=== PATIENT | female | born 1985 | race Caucasian/White ===

== ENCOUNTER 2018-04-21 11:29 | Inpatient (IN) ==
[2018-04-21] MEDS ORDERED: Aluminum/Magnesium/Simethacone Susp 30 ML UDC PO PRN (13:03)
[2018-04-21] MEDS ORDERED: [UNRECOGNIZED DRUG - REMARK] T-DERMAL SCH ×2 (13:15→14:00)
[2018-04-21] MEDS ORDERED: Estradiol 0.1 MG/24 HR Patch T-DERMAL SCH (14:00)
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
[2018-04-21] MEDS: Melatonin 5 MG Tablet PO PRN (21:29)
[2018-04-22 07:29] LABS: Calcium 9.1 mg/dL (8.5-10.1); Carbon Dioxide 26.2 meq/L (21.0-32.0); Potassium 3.7 meq/L (3.5-5.1)
[2018-04-22 07:39] LABS: Chol/HDL Ratio 3.31 Ratio; HDL Cholesterol 56.1 mg/dL (40.0-60.0); Thyroid Stimulating Hormone 1.13 uIU/mL (0.358-3.740)
[2018-04-22] MEDS: Acetaminophen 325 MG Tablet PO PRN ×2 (09:37→20:00)
[2018-04-22 13:09] LABS: Hemoglobin A1c 4.8 % (4.3-6.0)
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
--- NOTE | 2018-04-22 18:15 | XR ---
EXAM DATE: 04/22/2018 6:13 PM EST AGE/SEX: 32 years / Female INDICATIONS: Bilateral lower abdomen pain today. Hematuria today. Constipation for 4 days. CLINICAL DATA: This is the patient's initial encounter. Patient reports that signs and symptoms have been present for 1 day and indicates a pain score of 7/10. MEDICAL/SURGICAL HISTORY: . Kidney stones. Hysterectomy. COMPARISON: No prior exams available for comparison. FINDINGS: The abdominal bowel gas pattern is normal. No abnormal masses, calcifications, or organomegaly is s een. The osseous structures are unremarkable. CONCLUSION: Negative examination. Electronically signed by: Juan David Longoria MD 04/22/2018 6:14 PM EST
[2018-04-22] MEDS: Sertraline 50 MG Tablet PO SCH (20:04)
[2018-04-22] MEDS ORDERED: traZODone 50 MG Tablet PO SCH (21:00)
[2018-04-23] MEDS: Melatonin 5 MG Tablet PO PRN ×2 (00:23→21:56)
[2018-04-23] MEDS: Acetaminophen 325 MG Tablet PO PRN (00:29)
[2018-04-23] MEDS: Sertraline 50 MG Tablet PO SCH (08:14)
[2018-04-23 10:27] LABS: Baso % (Auto) 0.5 % (0.0-2.0); Eos # (Auto) 0.1 th/mm3 (0.0-0.4); Eos % (Auto) 1.6 % (0.0-4.0); Hematocrit 40.1 % (35.0-46.0); Hemoglobin 14.4 gm/dL (11.6-15.3); Lymph # (Auto) 1.8 th/mm3 (1.0-4.8); Lymph % (Auto) 31.5 % (9.0-44.0); Mean Corpuscular HGB Conc 35.8 % (32.0-36.0); Mean Corpuscular Hemoglobin 30.9 pg (27.0-34.0); Mean Corpuscular Volume 86.4 fL (80.0-100.0); Mean Platelet Volume 8.2 fL (7.0-11.0); Mono # (Auto) 0.5 th/mm3 (0.0-0.9); Mono % (Auto) 8.9 % (0.0-8.0); Neut # (Auto) 3.2 th/mm3 (1.8-7.7); Neut % (Auto) 57.5 % (16.0-70.0); Platelet Count 316 th/mm3 (150-450); Red Blood Count 4.65 mil/mm3 (4.00-5.30); Red Cell Distribution Width 13.2 % (11.6-17.2); White Blood Count 5.6 th/mm3 (4.0-11.0)
[2018-04-23] MEDS ORDERED: Ibuprofen 400 MG Tablet PO PRN (10:46)
--- NOTE | 2018-04-23 10:53 | P.PNPSY ---
Subjective Chief Complaint: cutting Remarks: Reviewed electronic medical records and discussed case with staff. Follow-up was conducted in the patient's room with NANCY Juarez present. Patient advised that the KUB was negative for a kidney stone. Patient endorses burning on urination. Will request a urine culture. Patient also requesting motrin prn for discomfort. Patient feels that the Zoloft is helping. She is cooperative, no behavioral concerns. Interactive with others. Denies SI/HI. Review of Systems All other systems reviewed negative except as stated in HPI Comments: experiencing burning with urination, Urine Cx ordered Mental Status Examination Appearance: Disheveled Consciousness: Alert Orientation: x4 Motor Activity: Normal gait Speech: Pressured Language: Adequate Fund of Knowledge: Adequate Attention and Concentration: Adequate Memory: Unremarkable Mood: Irritable Affect: Anxious Thought Process & Associations: Intact Thought Content: Appropriate Hallucination Type: None Delusion Type: Somatic (Possible somatic delusions if negative for kidney stones ) Suicidal Ideation: No Suicidal Plan: No Suicidal Intention: No Homicidal Ideation: No Homicidal Plan: No Homicidal Intention: No Insight: Poor Judgment: Poor Assessment and Plan - Assessment (1) Post traumatic stress disorder (PTSD) Code(s): F43.10 - Post-traumatic stress disorder, unspecified Status: Acute (2) Borderline personality disorder in adult Code(s): F60.3 - Borderline personality disorder Status: Acute - Plan Plan: Continue current treatment plan. Justification for Continued Inpatient Stay: Moving patient to a less restrictive environment may result in her decompensation.
[2018-04-23 11:09] LABS: Calcium 9.2 mg/dL (8.5-10.1); Carbon Dioxide 27.1 meq/L (21.0-32.0); Potassium 3.9 meq/L (3.5-5.1)
--- NOTE | 2018-04-23 18:03 | P.PNIM ---
Subjective Interval history: Follow-up for abdominal pain, questionable kidney stones, hypertension and suicidal ideation. Patient seen and examined sitting in the day room, does not look like to be in any distress or in any pain, talking and eating dinner without complaints. Patient complained of some nausea, with some diarrhea this morning and was given Maalox, feel slightly better. However patient tolerating dinner without nausea or vomiting. Patient denies any pain in urination, fever or chills, denies any abdominal pain at this time. Nurse reported patient complains of diarrhea and some abdominal pain with nausea was given Maalox. Physical Exam Vital signs: Vital Signs 04/22/18 19:16 04/23/18 06:10 Temperature 98.1 F 97.5 F L Pulse Rate 123 H 89 Respiratory Rate 17 17 Blood Pressure 128/92 H 134/91 H Pulse Oximetry 100 98 Narrative: GENERAL: Well-developed, thin appearing young female in no apparent distress SKIN: Warm and dry. HEAD: Atraumatic. Normocephalic. EYES: Pupils equal and round. No scleral icterus. No injection or drainage. ENT: No nasal bleeding or discharge. Mucous membranes pink and moist. NECK: Trachea midline. No JVD. CARDIOVASCULAR: Regular rate and rhythm. RESPIRATORY: No accessory muscle use. Clear to auscultation. Breath sounds equal bilaterally. GASTROINTESTINAL: Abdomen soft, non-tender, nondistended. Hepatic and splenic margins not palpable. MUSCULOSKELETAL: Extremities without clubbing, cyanosis, or edema. No obvious deformities. NEUROLOGICAL: Awake and alert. No obvious cranial nerve deficits. Motor grossly within normal limits. Five out of 5 muscle strength in the arms and legs. Normal speech. PSYCHIATRIC: Appropriate mood and affect; insight and judgment normal. Results - Labs CBC & Chem 7: 04/23/18 09:32 04/23/18 09:32 Laboratory Results - last 24 hr 04/23/18 04/23/18 09:32 09:32 WBC 5.6 RBC 4.65 Hgb 14.4 Hct 40.1 MCV 86.4 MCH 30.9 MCHC 35.8 RDW 13.2 Plt Count 316 MPV 8.2 Neut % (Auto) 57.5 Lymph % (Auto) 31.5 Harnett % (Auto) 8.9 H Eos % (Auto) 1.6 Baso % (Auto) 0.5 Neut # (Auto) 3.2 Lymph # (Auto) 1.8 Harnett # (Auto) 0.5 Eos # (Auto) 0.1 Baso # (Auto) 0.0 WBC Differential . Differential Comment Auto diff final Sodium 139 Potassium 3.9 Chloride 106 Carbon Dioxide 27.1 Anion Gap 6 BUN 17 Creatinine 0.89 Estimated GFR 73 L Random Glucose 103 Calcium 9.2 - Imaging Impressions Abdomen X-Ray 04/22/18 17:05 CONCLUSION: Negative examination. Assessment and Plan - Assessment (1) Encounter for psychiatric assessment Code(s): Z76.89 - Persons encountering health services in other specified circumstances Status: Acute (2) Borderline personality disorder in adult Code(s): F60.3 - Borderline personality disorder Status: Acute (3) Kidney stone Code(s): N20.0 - Calculus of kidney Status: Acute - Plan This is a 32 years old young female with past medical history of kidney stones, hypertension, endometriosis, ovarian cyst, marijuana use who presented to the emergency department under Fry act. According to Fry act report the patient is having suicidal thoughts with self-inflicted wrist laceration. Abdominal pain Possible kidney stone Nausea -With patient's history of multiple kidney stones, per patient report. Patient stated he seen a urologist in [facility]. -Patient stated history of passing kidney stones -KUB ordered, results unremarkable -PRN Zofran for nausea -PRN Tylenol for pain -Encourage increase fluid intake, if unable to take fluid intake may need IV fluid -Monitor signs and symptoms -CBC and BMP unremarkable -No fever chills -Urine sent for UA with C&S if indicated, results pending. Follow results Hypertension Blood pressure controlled -Monitor blood pressure History of endometriosis Ovarian cyst -Continue estradiol -Monitor signs and symptoms Suicidal ideation History of substance abuse, use of marijuana -Management by psychiatric team -On Zoloft and trazodone DVT prophylaxis: Patient ambulatory Thank you for your consultation, we will continue to follow patient. Code Status: Full code Discussed Condition With: Patient and nurse
[2018-04-23] MEDS: traZODone 100 MG Tablet PO SCH ×2 (20:57→21:56)
[2018-04-24] MEDS: Acetaminophen 325 MG Tablet PO PRN (06:26)
[2018-04-24] MEDS: Sertraline 50 MG Tablet PO SCH (08:34)
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
== END 2018-04-24 13:00 | disposition home or self-care (01) ==
LOC: NEPJ 11:29 → NEDA 13:03 → H260 14:42 → H270 21:55
PROVIDERS: ADMIT Psychiatry & Neurology Psychiatry; ATTEND Psychiatry & Neurology Psychiatry